=== PATIENT | female | born 1950 | race American Indian/Alaskan Native ===

== ENCOUNTER 2017-12-08 10:15 | Outpatient (CLI) | payer BC ==
--- NOTE | 2017-12-09 13:42 | Mammography Report ---
BILATERAL DIGITAL SCREENING MAMMOGRAM with CAD: 12/08/17 CLINICAL: Routine screening. COMPARISON:None available. However, a prior mammogram was apparently done at [facility]. FINDINGS: Routine views without and with implant displacement were performed and demonstrate mostly fatty breasts. Left retroareolar asymmetry on the implant displaced CC view requires comparison with the prior mammogram or additional imaging. The right breast is negative. Bilateral intact subglandular implants. IMPRESSION: Left asymmetry requiring further evaluation. BI-RADS CATEGORY: 0 -- Additional Evaluation Required RECOMMENDATION: Comparison with a previous mammogram. We will attempt to obtain a prior mammogram for comparison. If we do not obtain a prior mammogram within 30 days, a revised report will be issued recommending a recall for additional imaging. Please be advised that the patient should not schedule an appointment for return until adequate time (at least 2 weeks) has passed for us to obtain the prior mammogram. ACR BI-RADS MAMMOGRAPHIC CODES: 0 = Needs additional imaging evaluation; 1 = Negative; 2 = Benign; 3 = Probably benign; 4 = Suspicious; 5 = Malignant; 6 = Known biopsy-proven malignancy COMMENT: 1. Dense breast tissue, i.e., adenosis, fibrocystic changes, etc., may obscure an underlying neoplasm. 2. Approximately 10% of cancers are not detected with mammography. 3. A negative mammography report should not delay biopsy if a clinically suspicious mass is present. COMMENT: Patient follow-up letters are generated via our [employer] application.
== END 2017-12-08 10:16 | disposition home or self-care (01) ==
LOC: SPVWC 10:15
PROVIDERS: ATTEND Family Medicine
DX: Z12.31 Encounter for screening mammogram for malignant neoplasm of breast (principal); Z98.82 Breast implant status
CPT/HCPCS: 77067

== ENCOUNTER 2019-07-05 10:23 | Outpatient (CLI) | payer MEDICARE ==
--- NOTE | 2019-07-05 14:31 | Mammography Report ---
BILATERAL DIGITAL SCREENING MAMMOGRAM WITH CAD AND IMPLANT-DISPLACED VIEWS HISTORY: SCREENING MAMMOGRAM COMPARISON: 12/08/2017 FINDINGS: Breast Density: predominantly fatty breast parenchymal pattern. Digital standard and implant-displaced CC and MLO views demonstrate no mammographic evidence of malig he. Bilateral retroglandular saline implants are in place. IMPRESSION No mammographic evidence of malignancy. If the clinical examination remains stable, recommend bilate ral screening mammograms beginning annually at age 40 per the current [employer] g uidelines or at intervals appropriate for the patient's risk factors. BIRADS 1: Negative. According to the [employer], yearly mammograms are recommended starting at age 40 and continuing as long as a woman is in good health. Clinical Breast Exams should be part of a period ic health exam-about every 3 years for women in their 20s and 30s and every year for women 40 and ove r. Breast self exam is an option for women starting in their 20s. Any breast change noted on a breast self exam should be reported promptly to the patient's healthcare provider. Breast MRI is recommende d for women with an approximately 20-25% or greater lifetime risk of breast cancer, including women w ith a strong family history of breast or ovarian cancer and women who have been treated for Hodgkin's disease. A negative Mammography report should not discourage follow up or biopsy of a clinically significant f inding and/or abnormality. Dense breast tissue may obscure small neoplasms. This examination was interpreted with the benefit of Computer-aided Detection analysis. The patient will be entered into a reminder system with a target due date for the next screening mamm ogram. Signer Name: Dennis White MD Signed: 07/05/2019 2:26 PM Workstation Name: [id number]
== END 2019-07-05 10:24 | disposition home or self-care (01) ==
LOC: SPVWC 10:23
PROVIDERS: ATTEND Family Medicine
DX: Z12.31 Encounter for screening mammogram for malignant neoplasm of breast (principal)
CPT/HCPCS: 77067

== ENCOUNTER 2019-10-17 08:18 | Outpatient (CLI) | payer BC, MEDICARE ==
--- NOTE | 2019-10-17 12:09 | Ultrasound Report ---
TRANSABDOMINAL PELVIC AND TRANSVAGINAL ULTRASOUND HISTORY: POSTMENOPAUSAL BLEEDING COMPARISON: None. TECHNIQUE: Routine transabdominal and transvaginal pelvic ultrasound performed. FINDINGS: TRANSABDOMINAL PELVIC ULTRASOUND: Uterus: Enlarged with multiple fibroids. The uterus measures 8.6 x 5.2 x 6.7 cm but this measurement does not include a dominant right fundal subserosal fibroid measuring approximately 6.6 x 4.7 x 6.7 c m. An anterior fundal intramural fibroid measures 2.5 x 2.7 x 3.3 cm. Additional anterior and posteri or uterine body intramural fibroids. Endometrium: Not demonstrated on the transabdominal scan. Ovaries: Not demonstrated on the transabdominal scan. Additional findings: Transvaginal exam was performed for better delineation of the endometrium and ov tiera. TRANSVAGINAL PELVIC ULTRASOUND: Uterus: Enlarged with multiple fibroids as described above. Endometrium: Thin measuring 1 mm. However, fluid in the uterine cavity and a polypoid endometrial ma ss measuring 2.7 x 1.2 x 1.8 cm. Right Ovary: Normal size, blood flow and appearance measuring 2.2 x 1.6 x 1.1 cm. Left Ovary: Normal size, blood flow and appearance measuring 2.2 x 0.7 x 1.4 cm. Additional findings: No free fluid. IMPRESSION: 1. Enlarged uterus with multiple leiomyomata and a dominant right fundal subserosal fibroid measuring 7 cm. 2. A polypoid endometrial mass measuring 2.7 cm. The differential includes endometrial carcinoma, soo ign polyp and uterine fibroid. 3. Abnormal endometrial fluid which raises suspicion for endometrial carcinoma. 4. Normal ovaries. Signer Name: Dennis White MD Signed: 10/17/2019 12:05 PM Workstation Name: [id number]
--- NOTE | 2019-10-17 16:30 | Mammography Report ---
BONE DEXA CLINICAL: Postmenopausal. TECHNIQUE: 2 site bone DEXA performed on an Hologic scanner. FINDINGS: The average BMD of the lumbar spine L1-L4 is 0.895g/cm squared with a T score of -2.3 and a Z score o f -0.2. The average total BMD of the left hip is 0.794 g/cm squared with a T score of -1.5and a Z score of -0 .5. IMPRESSION: 1. WHO classification: Osteopenia with increased fracture risk based on spine measurements. 2. WHO classification Osteopenia with increased fracture risk based on left hip measurements. RECOMMENDATION: Clinical correlation and routine screening. Definitions: BMD equal bone mineral density T score = BMD related to peak bone mass of young adult ([place] expressed an standard deviation) Z score = age-matched BMD expressed in SD World health organization (WHO) diagnostic criteria Normal T score greater than equal to 1 standard deviation Osteopenia T score between -1 and -2.4 standard deviation Osteoporosis T score -2.5 standard deviation or below. Note: BMD is not the only risk factor for fracture; also consider factors such as the patient's age, risk of falling, previous osteoporotic fracture, family history of osteoporotic fractures, current sm oker and low body weight. Z scores are not calculated if greater than 80 years of age. Signer Name: Dennis White MD Signed: 10/17/2019 4:25 PM Workstation Name: [id number]
== END 2019-10-17 08:19 | disposition home or self-care (01) ==
LOC: SPVWC 08:18
PROVIDERS: ATTEND Family Medicine
DX: N95.0 Postmenopausal bleeding (principal); Z78.0 Asymptomatic menopausal state
CPT/HCPCS: 76830; 76856; 77080

== ENCOUNTER 2021-02-02 08:50 | Outpatient (CLI) | payer MEDICARE ==
--- NOTE | 2021-02-02 09:37 | Mammography Report ---
DIGITAL SCREENING MAMMOGRAM, 02/02/2021 CLINICAL INFORMATION / INDICATION: Routine screening mammography. SCREENING WITH IMPLANTS TECHNIQUE: Digital bilateral 2D mammography was obtained in the craniocaudal and mediolateral obliqu e projections. COMPARISON: Prior mammogram 07/05/2019 FINDINGS: Breast Density: There are scattered areas of fibroglandular density. No dominant mass, suspicious calcifications, or architectural distortion in either breast. There are bilateral prepectoral silicone implants. There has been no significant change compared with the prior examination. IMPRESSION: No mammographic evidence of malignancy. Follow up recommendation: Routine yearly BI-RADS Category 1: Negative. A "normal" or negative report should not discourage follow up or biopsy of a clinically significant f inding. A written summary of these findings will be mailed to the patient. The patient will be entered into a mammography reporting system which will generate a reminder letter for the patient's next appointmen t at the appropriate interval. The [employer] recommends yearly mammograms starting at age 40 and continuing as l sp as a woman is in good health. Breast MRI is recommended for women with an approximate 20-25% or greater lifetime risk of breast cancer, including women with a strong family history of breast or ova padmaja cancer or who have been treated for Hodgkin's disease. Signer Name: Samara Stiles MD Signed: 02/02/2021 9:32 AM Workstation Name: [id number]
== END 2021-02-02 08:51 | disposition home or self-care (01) ==
LOC: SPVWC 08:50
PROVIDERS: ATTEND Family Medicine
DX: Z12.31 Encounter for screening mammogram for malignant neoplasm of breast (principal); N64.89 Other specified disorders of breast
CPT/HCPCS: 77067